=== PATIENT | female | born 1975 | race Caucasian/White ===

== ENCOUNTER 2016-11-16 05:04 | Emergency (ER) | payer MEDICAID ==
[~2016-11-16] VITALS: Ht 149.9 cm; Wt 57.2 kg
[2016-11-16] MEDS ORDERED: ACETAMINOPHEN 325 MG TABLET ONE (05:38)
[2016-11-16 05:42] VITALS: BP 149/94
[2016-11-16] MEDS ORDERED: ACETAMINOPHEN 325 MG TABLET PO ONE (06:00)
== END 2016-11-16 05:43 | disposition home or self-care (01) ==
LOC: ED 05:21
DX: H66.002 Acute suppurative otitis media without spontaneous rupture of ear drum, left ear (principal); Z85.41 Personal history of malignant neoplasm of cervix uteri
CPT/HCPCS: 99283

== ENCOUNTER 2017-02-04 14:46 | Emergency (ER) | payer MEDICAID ==
[~2017-02-04] VITALS: Ht 149.9 cm; Wt 53.2 kg
[2017-02-04] MEDS ORDERED: ACETAMINOPHEN 500 MG TABLET PO ONE (15:30)
[2017-02-04] MEDS ORDERED: ACETAMINOPHEN 500 MG TABLET ONE (15:41)
[2017-02-04 16:22] VITALS: BP 113/75
== END 2017-02-04 16:25 | disposition home or self-care (01) ==
LOC: ED 16:00
DX: S30.0XXA Contusion of lower back and pelvis, initial encounter (principal); Z86.19 Personal history of other infectious and parasitic diseases; Z85.9 Personal history of malignant neoplasm, unspecified; Z88.5 Allergy status to narcotic agent; Z88.8 Allergy status to other drugs, medicaments and biological substances; W19.XXXA Unspecified fall, initial encounter; Y93.89 Activity, other specified; Y92.89 Other specified places as the place of occurrence of the external cause; Y99.8 Other external cause status
CPT/HCPCS: 72220; 99284

== ENCOUNTER 2017-03-12 20:24 | Emergency (ER) | payer MEDICAID ==
[~2017-03-12] VITALS: Ht 149.9 cm; Wt 54.4 kg
[2017-03-12] MEDS ORDERED: FAMOTIDINE 20 MG/2 ML IVP ONE (21:00)
[2017-03-12] MEDS ORDERED: SODIUM CHLORIDE 0.9% 1,000ML IVBOLUS ONE ×2 (21:00→23:00)
[2017-03-12] MEDS ORDERED: MAALOX/HYOSCYAMINE/LIDOCAINE 45 ML BTL PO ONE (21:00)
[2017-03-12] MEDS ORDERED: ONDANSETRON 2MG/ML, 2ML IVPush ONE (21:00)
[2017-03-12] MEDS ORDERED: SODIUM CHLORIDE FLUSH 10ML SYR IVF ONE ×2 (21:00→23:00)
[2017-03-12] MEDS ORDERED: FAMOTIDINE 20 MG/2 ML ONE (22:11)
[2017-03-12] MEDS ORDERED: MAALOX/HYOSCYAMINE/LIDOCAINE 45 ML BTL ONE (22:11)
[2017-03-12] MEDS ORDERED: ONDANSETRON 2MG/ML, 2ML ONE (22:11)
[2017-03-12 22:35] LABS: BLOOD UREA NITROGEN 10 mg/dL (7-18)
[2017-03-12 22:43] LABS: ASPARTATE AMINO TRANSFERASE 61 U/L (15-37)
[2017-03-12 22:56] VITALS: BP 129/82
[2017-03-12] MEDS ORDERED: HYDROmorphone 1 MG/ML, 1ML IVPush PRN (23:00)
[2017-03-12 23:14] LABS: HEMATOCRIT 37.3 % (34.6-47.8); HEMOGLOBIN 12.3 g/dL (11.7-16.4); WHITE BLOOD COUNT 8.6 x10^3/uL (3.4-10)
== END 2017-03-12 23:39 | disposition left against medical advice (07) ==
LOC: ED 22:34
DX: K85.00 Idiopathic acute pancreatitis without necrosis or infection (principal); E86.0 Dehydration
CPT/HCPCS: 36415; 80053; 80307; 83690; 84703; 85025; 99284

== ENCOUNTER 2017-07-02 20:20 | Emergency (ER) | payer MEDICAID ==
[~2017-07-02] VITALS: Ht 149.9 cm; Wt 53.7 kg
[2017-07-02 20:21] VITALS: BP 149/102
[2017-07-02 22:05] LABS: HCG UR LOT HCG7030192
[2017-07-02 22:11] LABS: HCG UR OBC PASS
[2017-07-02] MEDS ORDERED: AZITHROMYCIN 500 MG TABLET PO ONE (23:00)
[2017-07-02] MEDS ORDERED: CEFTRIAXONE 250 MG IM ONE (23:00)
[2017-07-02] MEDS ORDERED: AZITHROMYCIN 250 MG TABLET ONE (23:28)
[2017-07-02] MEDS ORDERED: CEFTRIAXONE 250 MG ONE (23:28)
[2017-07-02] MEDS ORDERED: ACETAMINOPHEN 325 MG TABLET ONE (23:36)
[2017-07-03] MEDS ORDERED: ACETAMINOPHEN 325 MG TABLET PO ONE
== END 2017-07-03 00:19 | disposition home or self-care (01) ==
LOC: ED 23:59
DX: N73.9 Female pelvic inflammatory disease, unspecified (principal); E11.9 Type 2 diabetes mellitus without complications; I10 Essential (primary) hypertension; K21.9 Gastro-esophageal reflux disease without esophagitis; Z88.8 Allergy status to other drugs, medicaments and biological substances
CPT/HCPCS: 81001; 81025; 87086; 87210; 87491; 87591; 87808; 96372; 99284; J0696

== ENCOUNTER 2017-09-05 09:44 | Emergency (ER) | payer MEDICAID ==
[~2017-09-05] VITALS: Ht 149.9 cm; Wt 54.2 kg
[2017-09-05 09:46] VITALS: BP 139/89
[2017-09-05] MEDS ORDERED: HYDROcodone/APAP 5/325 TABLET ONE (10:07)
[2017-09-05] MEDS ORDERED: HYDROcodone/APAP 5/325 TABLET PO ONE (10:30)
== END 2017-09-05 10:31 | disposition home or self-care (01) ==
LOC: ED 10:15
DX: K08.89 Other specified disorders of teeth and supporting structures (principal); K21.9 Gastro-esophageal reflux disease without esophagitis; I10 Essential (primary) hypertension; E11.9 Type 2 diabetes mellitus without complications; Z90.721 Acquired absence of ovaries, unilateral
CPT/HCPCS: 99283

== ENCOUNTER 2017-09-11 09:07 | Emergency (ER) | payer MEDICAID ==
[~2017-09-11] VITALS: Ht 149.9 cm; Wt 54.7 kg
[2017-09-11 09:19] VITALS: BP 134/95
[2017-09-11] MEDS ORDERED: IBUPROFEN 200 MG TABLET ONE (10:25)
[2017-09-11] MEDS ORDERED: IBUPROFEN 200 MG TABLET PO ONE (10:30)
[2017-09-11] MEDS ORDERED: HYDROcodone/APAP 5/325 TABLET ONE (11:36)
[2017-09-11] MEDS ORDERED: HYDROcodone/APAP 5/325 TABLET PO ONE (12:00)
== END 2017-09-11 11:42 | disposition home or self-care (01) ==
LOC: ED 11:21
DX: S39.82XA Other specified injuries of lower back, initial encounter (principal); I10 Essential (primary) hypertension; E11.9 Type 2 diabetes mellitus without complications; K21.9 Gastro-esophageal reflux disease without esophagitis; Y04.0XXA Assault by unarmed brawl or fight, initial encounter; Y93.89 Activity, other specified; Y92.098 Other place in other non-institutional residence as the place of occurrence of the external cause; Y99.8 Other external cause status; Z85.41 Personal history of malignant neoplasm of cervix uteri; Z85.43 Personal history of malignant neoplasm of ovary
CPT/HCPCS: 72072; 72110; 99284

== ENCOUNTER 2018-01-21 20:53 | Emergency (ER) | payer MEDICAID ==
[~2018-01-21] VITALS: Ht 149.9 cm; Wt 53.8 kg
[2018-01-21 20:54] VITALS: BP 167/125
[2018-01-21] MEDS ORDERED: LIDOCAINE-MPF 1%, 2ML ONE (21:20)
[2018-01-21] MEDS ORDERED: LIDOCAINE-MPF 1%, 5ML INFIL ONE (21:30)
== END 2018-01-21 22:00 | disposition home or self-care (01) ==
LOC: ED 21:46
DX: L02.01 Cutaneous abscess of face (principal); F17.200 Nicotine dependence, unspecified, uncomplicated; E11.9 Type 2 diabetes mellitus without complications; I10 Essential (primary) hypertension; C53.9 Malignant neoplasm of cervix uteri, unspecified
CPT/HCPCS: 10060; 99283

== ENCOUNTER 2018-05-19 18:28 | Emergency (ER) | payer SELFPAY ==
[~2018-05-19] VITALS: Ht 149.9 cm; Wt 51.5 kg
[2018-05-19 18:37] VITALS: BP 144/98
[2018-05-19 20:46] LABS: RAPID INFLUENZA A Negative (Negative); RAPID INFLUENZA B Negative (Negative)
== END 2018-05-19 21:00 | disposition home or self-care (01) ==
LOC: ED 19:40
DX: J00 Acute nasopharyngitis [common cold] (principal); B34.9 Viral infection, unspecified; I10 Essential (primary) hypertension; E11.9 Type 2 diabetes mellitus without complications; K21.9 Gastro-esophageal reflux disease without esophagitis; B19.20 Unspecified viral hepatitis C without hepatic coma
CPT/HCPCS: 71046; 87400; 99285

== ENCOUNTER 2018-06-03 10:29 | Emergency (ER) | payer SELFPAY ==
[~2018-06-03] VITALS: Ht 149.9 cm; Wt 54.5 kg
[2018-06-03] MEDS ORDERED: HYDROcodone/APAP 5/325 TABLET PO ONE (11:00)
[2018-06-03] MEDS ORDERED: HYDROcodone/APAP 5/325 TABLET ONE (11:15)
[2018-06-03 11:19] VITALS: BP 127/98
[2018-06-03 11:33] LABS: BASOPHILS # (AUTO) 0.02 x10^3/uL (0-0.1); BASOPHILS % (AUTO) 0 % (0-1); EOSINOPHILS # (AUTO) 0.33 x10^3/uL (0-0.4); EOSINOPHILS % (AUTO) 5 % (1-7); LYMPHOCYTES # (AUTO) 1.66 x10^3/uL (1-3.4); LYMPHOCYTES % (AUTO) 26 % (22-44); MD NO; MEAN CORPUSCULAR HEMOGLOBIN 31.2 pg (27.0-34.8); MEAN CORPUSCULAR HGB CONC 33.9 g/dL (32.4-35.8); MEAN CORPUSCULAR VOLUME 92.1 fL (80-100); MEAN PLATELET VOLUME 7.3 fL (7.4-10.4); MONOCYTES # (AUTO) 0.35 x10^3/uL (0.2-0.8); MONOCYTES % (AUTO) 6 % (2-9); NEUTROPHILS # (AUTO) 3.95 x10^3/uL (1.8-6.8); NEUTROPHILS % (AUTO) 63 % (42-75); PLATELET COUNT 332 x10^3/uL (130-400); RED BLOOD COUNT 4.33 x10^6/uL (3.82-5.3)
[2018-06-03 11:44] LABS: ANION GAP 9 mmol/L (5-15); CALCIUM 8.1 mg/dL (8.5-10.1); CHLORIDE 108 mmol/L (98-107); CREATININE 0.74 mg/dL (0.55-1.02)
[2018-06-03 11:48] LABS: TROPONIN I < 0.015 ng/mL (0.000-0.045)
== END 2018-06-03 12:27 | disposition home or self-care (01) ==
LOC: ED 11:06
DX: J20.8 Acute bronchitis due to other specified organisms (principal); B97.89 Other viral agents as the cause of diseases classified elsewhere; I10 Essential (primary) hypertension; E11.9 Type 2 diabetes mellitus without complications; F17.200 Nicotine dependence, unspecified, uncomplicated
CPT/HCPCS: 36415; 71046; 80048; 82040; 84484; 85025; 93005; 99285

== ENCOUNTER 2019-02-03 18:17 | Emergency (ER) | payer MEDICAID ==
[~2019-02-03] VITALS: Ht 149.9 cm; Wt 59.6 kg
[2019-02-03 18:21] VITALS: BP 134/79
== END 2019-02-03 20:40 | disposition home or self-care (01) ==
LOC: ED 20:27
DX: J02.9 Acute pharyngitis, unspecified (principal); R05 Cough; Z86.19 Personal history of other infectious and parasitic diseases; K21.9 Gastro-esophageal reflux disease without esophagitis; I10 Essential (primary) hypertension; E11.9 Type 2 diabetes mellitus without complications
CPT/HCPCS: 71046; 87081; 87880; 99284

== ENCOUNTER 2019-07-20 14:32 | Emergency (ER) | payer MEDICAID ==
[~2019-07-20] VITALS: Ht 157.5 cm; Wt 61.5 kg
[2019-07-20 15:12] LABS: RAPID INFLUENZA A Negative (Negative); RAPID INFLUENZA B Negative (Negative)
--- NOTE | 2019-07-20 16:02 | NUR ---
NO ANSWER IN LOBBY
[2019-07-20 16:40] LABS: BASOPHILS % (AUTO) 0 % (0-1); EOSINOPHILS # (AUTO) 0.22 x10^3/uL (0-0.4); EOSINOPHILS % (AUTO) 3 % (1-7); LYMPHOCYTES # (AUTO) 2.25 x10^3/uL (1-3.4); LYMPHOCYTES % (AUTO) 28 % (22-44); MD NO; MEAN CORPUSCULAR HEMOGLOBIN 29.7 pg (27.0-34.8); MEAN CORPUSCULAR HGB CONC 32.8 g/dL (32.4-35.8); MEAN CORPUSCULAR VOLUME 90.6 fL (80-100); MEAN PLATELET VOLUME 7.2 fL (7.4-10.4); MONOCYTES # (AUTO) 0.35 x10^3/uL (0.2-0.8); MONOCYTES % (AUTO) 4 % (2-9); NEUTROPHILS % (AUTO) 65 % (42-75); PLATELET COUNT 334 x10^3/uL (130-400); RED BLOOD COUNT 4.44 x10^6/uL (3.82-5.3); RED CELL DISTRIBUTION WIDTH 12.9 % (9.6-15.2)
[2019-07-20 16:57] LABS: ANION GAP 7 mmol/L (5-15); CALCIUM 8.7 mg/dL (8.5-10.1); CHLORIDE 110 mmol/L (98-107); CREATININE 0.87 mg/dL (0.55-1.02)
[2019-07-20 17:01] LABS: TROPONIN I < 0.015 ng/mL (0.000-0.045)
[2019-07-20 21:44] VITALS: BP 137/92
== END 2019-07-20 21:46 | disposition home or self-care (01) ==
LOC: ED 21:40
DX: J41.1 Mucopurulent chronic bronchitis (principal); R06.00 Dyspnea, unspecified; I10 Essential (primary) hypertension; E11.9 Type 2 diabetes mellitus without complications; F17.200 Nicotine dependence, unspecified, uncomplicated; Z86.19 Personal history of other infectious and parasitic diseases
CPT/HCPCS: 36415; 71046; 80048; 84484; 85025; 87081; 87400; 87880; 93005; 99284

== ENCOUNTER 2019-07-28 21:08 | Emergency (ER) | payer MEDICAID ==
[~2019-07-28] VITALS: Ht 149.9 cm; Wt 62.2 kg
[2019-07-28] MEDS ORDERED: SODIUM CHLORIDE 0.9% 1,000ML IVBOLUS ONE (23:00)
[2019-07-28] MEDS ORDERED: ONDANSETRON 2MG/ML, 2ML IVPush ONE (23:00)
[2019-07-28] MEDS ORDERED: SODIUM CHLORIDE FLUSH 10ML SYR IVF ONE (23:00)
--- NOTE | 2019-07-29 00:04 | NUR ---
pt to room from lobby
--- NOTE | 2019-07-29 00:19 | NUR ---
PT. REPORTS COUGH X 1 MONTH. STATES BODY ACHES, [place], N/V/D STARTED 2 DAYS AGO. URINE SAMPLE COLLECTED AND SENT TO LAB.
[2019-07-29 00:25] LABS: MICROSCOPIC NOT IND
[2019-07-29 00:29] LABS: CULTURE INDICATED? NO
[2019-07-29] MEDS ORDERED: ONDANSETRON 2MG/ML, 2ML ONE (00:51)
[2019-07-29] MEDS ORDERED: METOCLOPRAMIDE 5 MG/ML, 2ML ONE (00:51)
[2019-07-29] MEDS ORDERED: DIPHENHYDRAMINE 50 MG/ML, 1ML ONE (00:52)
[2019-07-29] MEDS ORDERED: SODIUM CHLORIDE 0.9% 1,000ML IVBOLUS ONE (01:00)
[2019-07-29] MEDS ORDERED: METOCLOPRAMIDE 5 MG/ML, 2ML IVPush ONE (01:00)
[2019-07-29] MEDS ORDERED: DIPHENHYDRAMINE 50 MG/ML, 1ML IVPush ONE (01:00)
[2019-07-29 01:09] LABS: ALBUMIN 2.8 g/dL (3.4-5.0); ANION GAP 5 mmol/L (5-15); CALCIUM 8.2 mg/dL (8.5-10.1); CHLORIDE 111 mmol/L (98-107)
--- NOTE | 2019-07-29 01:09 | NUR ---
UNABLE TO OBTAIN IV ACCESS. US IV TO BE PLACED.
[2019-07-29 01:16] LABS: ALANINE AMINOTRANSFERASE 23 U/L (12-78); ALKALINE PHOSPHATASE 60 U/L (45-117); BILIRUBIN,TOTAL 0.2 mg/dL (0.2-1.0); CREATININE 0.71 mg/dL (0.55-1.02); TOTAL PROTEIN 6.9 g/dL (6.4-8.2)
[2019-07-29 01:25] LABS: BASOPHILS # (AUTO) 0.07 x10^3/uL (0-0.1); BASOPHILS % (AUTO) 1 % (0-1); EOSINOPHILS # (AUTO) 0.33 x10^3/uL (0-0.4); EOSINOPHILS % (AUTO) 3 % (1-7); LYMPHOCYTES # (AUTO) 3.17 x10^3/uL (1-3.4); LYMPHOCYTES % (AUTO) 29 % (22-44); MD SCAN; MEAN CORPUSCULAR VOLUME 90.8 fL (80-100); MEAN PLATELET VOLUME 8.6 fL (7.4-10.4); MONOCYTES # (AUTO) 0.42 x10^3/uL (0.2-0.8); MONOCYTES % (AUTO) 4 % (2-9); NEUTROPHILS # (AUTO) 7.15 x10^3/uL (1.8-6.8); NEUTROPHILS % (AUTO) 64 % (42-75); PLATELET COUNT 435 x10^3/uL (130-400); RED BLOOD COUNT 4.15 x10^6/uL (3.82-5.3); RED CELL DISTRIBUTION WIDTH 13.5 % (9.6-15.2)
[2019-07-29 04:24] VITALS: BP 122/72
== END 2019-07-29 04:26 | disposition home or self-care (01) ==
LOC: ED 07-29 00:23
DX: R19.7 Diarrhea, unspecified (principal); R51 Headache; R11.2 Nausea with vomiting, unspecified; E86.0 Dehydration; I10 Essential (primary) hypertension; E11.9 Type 2 diabetes mellitus without complications; K21.9 Gastro-esophageal reflux disease without esophagitis; F17.200 Nicotine dependence, unspecified, uncomplicated; Z90.721 Acquired absence of ovaries, unilateral
CPT/HCPCS: 36415; 80053; 81003; 83690; 84703; 85025; 96361; 96374; 96375; 99283; J1200; J2405; J2765; J7030

== ENCOUNTER 2019-12-23 13:32 | Emergency (ER) | payer MEDICAID ==
[~2019-12-23] VITALS: Ht 157.5 cm; Wt 71.2 kg
[2019-12-23 13:39] VITALS: BP 123/88
--- NOTE | 2019-12-23 14:24 | NUR ---
BREAK RN NOTE: PT BROUGHT TO ROOM 24 FROM [facility], GAIT STEADY. PT C/O LEFT UPPER DENTAL PAIN X 2 MONTHS, SWELLING AND INCREASED PAIN TO LEFT FACE SINCE YESTERDAY. PT A&O, RESPS EVEN AND UNLABORED, AJ. AWAITING MD AND ORDERS AT THIS TIME.
--- NOTE | 2019-12-23 14:50 | NUR ---
REPORT GIVEN BACK TO PRIMARY RN AMADOU.
--- NOTE | 2019-12-23 15:13 | NUR ---
SURGICAL SERVICES ASST: Patient/Caregiver given discharge instructions and they have confirmed that they understand the instructions. Patient ambulatory with steady gait.
== END 2019-12-23 15:14 | disposition home or self-care (01) ==
LOC: ED 14:42
DX: K08.89 Other specified disorders of teeth and supporting structures (principal); I10 Essential (primary) hypertension; E11.9 Type 2 diabetes mellitus without complications; K21.9 Gastro-esophageal reflux disease without esophagitis; F17.200 Nicotine dependence, unspecified, uncomplicated
CPT/HCPCS: 99283

== ENCOUNTER 2020-06-03 14:57 | Emergency (ER) | payer MEDICAID ==
[~2020-06-03] VITALS: Ht 157.5 cm; Wt 68.7 kg
[2020-06-03] MEDS ORDERED: SODIUM CHLORIDE FLUSH 10ML SYR IVF ONE (16:00)
[2020-06-03] MEDS ORDERED: ONDANSETRON 2MG/ML, 2ML IVPush ONE (16:00)
[2020-06-03] MEDS ORDERED: FENTANYL PF 100 MCG/2ML IVPush ONE ×2 (16:00→18:30)
[2020-06-03] MEDS ORDERED: ONDANSETRON 2MG/ML, 2ML ONE (16:42)
[2020-06-03] MEDS ORDERED: FENTANYL PF 100 MCG/2ML ONE ×2 (16:42→18:21)
--- NOTE | 2020-06-03 16:45 | NUR ---
PT REPORTS HX OF IV DRUG USE, SCAR TISSUE OBSERVED. PIV STARTED AFTER 3RD ATTEMPT AND PT MEDICATED PER EMAR. VSS, NADN.
[2020-06-03 16:58] LABS: BASOPHILS % (AUTO) 0 % (0-1); EOSINOPHILS % (AUTO) 2 % (1-7); LYMPHOCYTES % (AUTO) 29 % (22-44); MEAN CORPUSCULAR HEMOGLOBIN 29.4 pg (27.0-34.8); MEAN CORPUSCULAR HGB CONC 33.2 g/dL (32.4-35.8); MEAN PLATELET VOLUME 7.6 fL (7.4-10.4); MONOCYTES % (AUTO) 5 % (2-9); NEUTROPHILS % (AUTO) 64 % (42-75); PLATELET COUNT 340 x10^3/uL (130-400); RED BLOOD COUNT 4.38 x10^6/uL (3.82-5.3); RED CELL DISTRIBUTION WIDTH 13.6 % (9.6-15.2)
[2020-06-03 17:02] LABS: MD NO
[2020-06-03 17:03] LABS: ANION GAP 7 mmol/L (5-15); CALCIUM 8.7 mg/dL (8.5-10.1); CHLORIDE 112 mmol/L (98-107); CREATININE 0.83 mg/dL (0.55-1.02)
[2020-06-03 17:04] LABS: ALANINE AMINOTRANSFERASE 20 U/L (12-78); ALBUMIN 3.7 g/dL (3.4-5.0)
[2020-06-03 17:09] LABS: ALKALINE PHOSPHATASE 73 U/L (45-117); BILIRUBIN,TOTAL 0.2 mg/dL (0.2-1.0); TOTAL PROTEIN 7.8 g/dL (6.4-8.2)
[2020-06-03 17:15] VITALS: BP 102/55
--- NOTE | 2020-06-03 17:15 | NUR ---
PT REPORTS RELIEF OF PAIN AFTER MEDS. PT STATES THAT SHE IS UNABLE TO PROVIDE URINE SAMPLE AT THIS TIME. RESTING ON [employer] W/ CALL LIGHT IN REACH AND SIDE RAILS UPX2. AJ MCCLURE.
[2020-06-03 18:23] LABS: MICROSCOPIC AUTO
--- NOTE | 2020-06-03 18:31 | NUR ---
ALL TESTS RESULTED. PT IS UP FOR RECHECK AT THIS TIME.
--- NOTE | 2020-06-03 18:55 | NUR ---
Patient given discharge instructions and they have confirmed that they understand the instructions. Patient ambulatory with steady gait.
== END 2020-06-03 18:57 | disposition home or self-care (01) ==
LOC: ED 16:09
DX: R10.84 Generalized abdominal pain (principal); R11.2 Nausea with vomiting, unspecified; R19.7 Diarrhea, unspecified
CPT/HCPCS: 36415; 80053; 81001; 83690; 84703; 85025; 87086; 96374; 96375; 96376; 99284; J2405; J3010

== ENCOUNTER 2020-08-30 10:01 | Emergency (ER) | payer MEDICAID ==
--- NOTE | 2020-08-30 10:42 | NUR ---
PT C/O GENERAL ACHINESS AND DIARRHEA AFTER LANCING A GROIN ABCESS 2 DAYS AGO. PT STATES THE ABCESS WAS REALLY BIG AND SHE LANCED IT TO RELEASE THE PRESSURE. PT DENIES FEVER, CP, COUGH, ABD PAIN, OR HEADACHE.
[2020-08-30 11:09] VITALS: BP 132/72
== END 2020-08-30 11:12 | disposition home or self-care (01) ==
LOC: ED 10:53
DX: L98.9 Disorder of the skin and subcutaneous tissue, unspecified (principal); R10.2 Pelvic and perineal pain; Z48.00 Encounter for change or removal of nonsurgical wound dressing
CPT/HCPCS: 99281